=== PATIENT | female | born 1970 | race Caucasian/White ===

== ENCOUNTER 2023-09-23 14:04 | Outpatient (RCR) | payer OTHER, SELFPAY | END 2023-09-23 23:59 | disposition home or self-care (01) | LOC: RPT 14:04 | PROVIDERS: ATTENDING PHYSICIAN Orthopaedic Surgery Orthopaedic Surgery of the Spine; FAMILY PHYSICIAN Family Medicine | DX: M54.2 Cervicalgia (principal); M47.14 Other spondylosis with myelopathy, thoracic region; Z98.1 Arthrodesis status; M54.6 Pain in thoracic spine; Z73.6 Limitation of activities due to disability | CPT/HCPCS: 97010; 97014; 97110; 97112; 97140 ==

== ENCOUNTER 2023-10-19 09:53 | Outpatient (RCR) | payer OTHER, SELFPAY | END 2023-10-21 23:59 | disposition home or self-care (01) | LOC: RPT 09:53 | PROVIDERS: ATTENDING PHYSICIAN Orthopaedic Surgery Orthopaedic Surgery of the Spine; FAMILY PHYSICIAN Family Medicine | DX: M54.2 Cervicalgia (principal); M47.14 Other spondylosis with myelopathy, thoracic region; Z98.1 Arthrodesis status; M54.6 Pain in thoracic spine; Z73.6 Limitation of activities due to disability | CPT/HCPCS: 97010; 97014; 97110; 97112; 97140 ==

== ENCOUNTER 2023-11-23 08:10 | Outpatient (RCR) | payer OTHER, SELFPAY | END 2023-11-25 23:59 | disposition home or self-care (01) | LOC: RPT 08:10 | PROVIDERS: ATTENDING PHYSICIAN Orthopaedic Surgery Orthopaedic Surgery of the Spine; FAMILY PHYSICIAN Family Medicine | DX: Z47.89 Encounter for other orthopedic aftercare (principal); M54.2 Cervicalgia; M47.14 Other spondylosis with myelopathy, thoracic region; M54.6 Pain in thoracic spine; Z73.6 Limitation of activities due to disability; R26.2 Difficulty in walking, not elsewhere classified; Z98.1 Arthrodesis status | CPT/HCPCS: 97010; 97014; 97110; 97112; 97140 ==

== ENCOUNTER 2024-03-24 08:56 | Outpatient (RCR) | payer OTHER, SELFPAY | END 2024-03-24 23:59 | disposition home or self-care (01) | LOC: RPT 08:56 | PROVIDERS: ATTENDING PHYSICIAN Orthopaedic Surgery Orthopaedic Surgery of the Spine; FAMILY PHYSICIAN Family Medicine | DX: M96.3 Postlaminectomy kyphosis (principal); M54.51 Vertebrogenic low back pain; M54.2 Cervicalgia; M54.6 Pain in thoracic spine; Z73.6 Limitation of activities due to disability; R26.9 Unspecified abnormalities of gait and mobility | CPT/HCPCS: 97010; 97110; 97112; 97140; 97162; 97530 ==

== ENCOUNTER 2024-04-07 09:04 | Outpatient (RCR) | payer OTHER, SELFPAY | END 2024-04-07 23:59 | disposition home or self-care (01) | LOC: RPT 09:04 | PROVIDERS: ATTENDING PHYSICIAN Orthopaedic Surgery Orthopaedic Surgery of the Spine; FAMILY PHYSICIAN Family Medicine | DX: M96.3 Postlaminectomy kyphosis (principal); M54.51 Vertebrogenic low back pain; M54.2 Cervicalgia; M54.6 Pain in thoracic spine; Z73.6 Limitation of activities due to disability; R26.9 Unspecified abnormalities of gait and mobility | CPT/HCPCS: 97010; 97110; 97112; 97140; 97530 ==

== ENCOUNTER 2024-05-01 11:06 | Outpatient (RCR) | payer OTHER, SELFPAY | END 2024-05-01 23:59 | disposition home or self-care (01) | LOC: RPT 11:06 | PROVIDERS: ATTENDING PHYSICIAN Nurse Practitioner Adult Health; FAMILY PHYSICIAN Family Medicine | DX: M96.3 Postlaminectomy kyphosis (principal); M54.2 Cervicalgia; M54.51 Vertebrogenic low back pain; M54.6 Pain in thoracic spine; Z73.6 Limitation of activities due to disability | CPT/HCPCS: 97010; 97110; 97140 ==

== ENCOUNTER 2024-05-05 08:57 | Outpatient (RCR) | payer OTHER, SELFPAY | END 2024-05-05 23:59 | disposition home or self-care (01) | LOC: RPT 08:57 | PROVIDERS: ATTENDING PHYSICIAN Orthopaedic Surgery Orthopaedic Surgery of the Spine; FAMILY PHYSICIAN Family Medicine | DX: M96.3 Postlaminectomy kyphosis (principal); M54.51 Vertebrogenic low back pain; M54.2 Cervicalgia; M54.6 Pain in thoracic spine; Z73.6 Limitation of activities due to disability; R26.9 Unspecified abnormalities of gait and mobility | CPT/HCPCS: 97010; 97110; 97140; 97530 ==

== ENCOUNTER → 2024-05-26 07:56 | Outpatient (REF) | payer OTHER, SELFPAY | LOC: HWRAD 07:56 | PROVIDERS: ATTENDING PHYSICIAN Obstetrics & Gynecology Gynecology; FAMILY PHYSICIAN Family Medicine | DX: R10.2 Pelvic and perineal pain (principal) | CPT/HCPCS: 76830; 76856 ==

== ENCOUNTER 2024-06-04 18:22 | Emergency (ER) | payer OTHER, SELFPAY ==
[2024-06-04 18:31] VITALS: BP 173/106
[2024-06-04 20:50] VITALS: BP 159/102
[2024-06-04 21:35] VITALS: BP 134/89
--- NOTE | 2024-06-04 22:32 | ED.GENMED ---
History of Present Illness
General
Chief Complaint: Wound Check/Suture Removal
Source: patient
Exam Limitations: none
Time Seen by Provider: 06/04/24 21:52
History of Present Illness
History of Present Illness:
This is a 54 year old female that comes in with c/o neck discomfort. States that 3 days ago she felt like there was a big hard bone in her neck. State that there was pain when she touched this. States that there was a pop when she turned her head or
it was like she ripped a stitch that was inside. Then last night it feels like it is rolling back and forth and popping. States that this was done 5 months ago today at [place]. States that louisa has a headache that goes from her neck to the top of
her head. States that she did not call the surgeon. Denies any fever, chills, chest pain, SOB, abd pain, nausea, vomiting, diarrhea, dizziness, urinary burning.
Past History
Past History
ED Past Medical History: Asthma, Psychiatric (Anxiety, depression, bipolar) and Other (IBS, chronic neck pain, migraines, Spinal stenosis. PNA, UTI, )
ED Past Surgical History: Appendectomy, Gynecological (Total abd hysterectomy, Leep), Orthopedic (T10-12 fusion, microdiscectomy L3/L4, right and left wrist surgery, Right hand surgery, Cervical fusion), Urological (Bladder and ureteral stent) and
Other (Left Lumpectomy)
Social History
Tobacco: Non-smoker
Alcohol: None
Drug: None
Personal:
Living: with family
Employment: Employed (Self-employed)
Family History
Family History: Other (Noncontributory)
Review of Systems
Review of Systems
All Other Systems: ROS reviewed and negative except as documented in HPI and ROS
Constitutional: Reports no symptoms; Denies fever or chills
EENT: Reports no symptoms
Respiratory: Reports no symptoms; Denies cough or trouble breathing
Cardiac: Reports no symptoms; Denies chest pain
ABD/GI: Reports no symptoms; Denies abdominal pain, nausea, vomiting or diarrhea
: Reports no symptoms; Denies dysuria, frequency or urgency
Musculoskeletal: Reports neck pain (Feels something moving and popping)
Skin: Reports no symptoms
Neurological: Reports headache; Denies dizzy
Psychiatric: Reports no symptoms
Phy Exam
General Physical Exam
General Presentation: well appearing and no apparent distress
General age: appears stated age
General Skin: warm and dry
General Habitus: normal
General Hydration: dry mucous membranes
ENT Exam
ENT Exam: TM's normal, pharynx normal and neck supple
Eye Exam
Eye Exam: EOMI
Cardiovascular Exam
Cardiovascular Exam: regular rate/rhythm, no edema, no murmur and normal peripheral pulses
Pulmonary Exam
Pulmonary Exam: lungs clear, no respiratory distress, no rales, chest non tender, no crackles, no rhonchi, no wheezing and no cough
Gastrointestinal Exam
Gastrointestinal Exam: normal bowel sounds, non tender, soft, no organomegaly, no pulsatile mass and non distended
Musculoskeletal Exam
Musculoskeletal Exam: full ROM and other (Patient turns head and something pops and moves at the lower cervical spine on the right side, Small hard area with palpation)
Skin Exam
Skin Exam: normal color, warm/dry, no rash and no petechia
Psychiatric Exam
Psychiatric Exam: normal mood/affect
Course
Orders/Labs/Results
Orders:
Orders
06/04/24 22:31
CT Cervical Spine W/o Iv Contr Urgent
Comment:
Reason For Exam: Cervical fusion and feels something moving.
Vital Signs
Initial and Last Documented VS:
Initial Vital Signs
Temp Pulse Resp BP Pulse Ox
98.5 F 99 16 173/106 96
06/04/24 18:31 06/04/24 18:31 06/04/24 18:31 06/04/24 18:31 06/04/24 18:31
Last Documented Vital Signs
Temp Pulse Resp BP Pulse Ox
98.5 F 89 20 134/89 96
06/04/24 18:31 06/04/24 21:35 06/04/24 20:50 06/04/24 21:35 06/04/24 21:35
MDM/Problems Addressed
Differential Diagnosis Includes:
Cervical bolt loose,
MDM/Problems Addressed:
This is a 54 year old female that comes in with c/o something moving in her neck. State that she noticed a hard area 3 days ago and now this spot is popping and moving. States that she also has a headache which she believes is form this issue.
Will get CT of the cervical spine. Explained to patient that she needs to call the Surgeon and follow up with them Tomorrow.
Back into see patient. Explained that her CT is negative for any loose hardware and alignment is normal. Patient to follow up with the Surgeon that did the surgery and to call them tomorrow. Encouraged patient to stop toughing her neck. Will
discharge home.
Chronic conditions affecting care:
cervical fusion
Acute Exacerbation and/or Progression of Chronic Illness:
Cervical fusion.
*Radiology
Radiology exam reviewed: radiology read reviewed (CT cervical spine-No acute fracture or traumatic malalignment. No prevertebral soft tissue swelling. Spinal fusion hardware along the anterior and posterior margins of the cervical spine. No evidence
of hardware loosening. )
*EKG
Interpreted by ED Provider?: NA
Rate: EKG- N/A
*Caul Dresser Interpretation
Rate: Caul Dresser- N/A
*Critical Care Note
Total Time (30-74mins, 75-104mins- exclusive of procedures): Not Applicable
ED Attending Note
-
Portions of this chart may have been created with voice recognition software.� Occasional wrong word or��sound alike� substitutions may have occurred due to the inherent limitations of voice recognition software.
Discharge Plan
Departure
Patient Disposition: Home (Routine Discharge)
Date of Disposition: 06/04/24
Time of Disposition: 23:52
Patient with high blood pressure during this ER visit?: Yes
Condition: Good
Covid-19: Not Applicable
Discharge Problem:
Neck pain
Instructions: Neck Pain ED, BLOOD PRESSURE
Prescriptions:
No Action
ondansetron HCl 4 MG tablet
4 mg PO Q8HPRN PRN (Reason: n/v)
lorazepam 1 MG tablet
1 mg PO Q4HPRN PRN (Reason: anxiety)
polyethylene glycol 3350 17 GRAMS powder in packet
17 gm PO DAILY PRN (Reason: constipation)
clonazepam 0.25 MG tablet
0.25 mg PO AC
clonazepam 1 MG tablet
1 mg PO HS
sertraline 50 MG tablet
50 mg PO DAILY
lamotrigine 100 MG tablet
100 mg PO 2000
lamotrigine 100 MG tablet
100 mg PO 0800,1500
cholecalciferol (vitamin D3) 1,000 UNITS tablet
1,000 units PO DAILY
plecanatide [Trulance] 3 MG tablet
3 mg PO DAILY
fluticasone furoate [Arnuity Ellipta] 50 MCG blister with device
50 mcg inhalation R DAILY
Kristalose 20 gram packet
20 g PO BID PRN (Reason: constipation) Qty: 30 0RF
codeine-guaifenesin 10-100 mg/5 mL liquid
5 ml PO ONCE Qty: 100 0RF
gabapentin 300 mg capsule
300 mg PO TID Qty: 30 0RF
Referrals:
Yas East MD [Family Provider] -
Activity Restrictions/Additional Instructions:
As discussed, the CT shows that there does not appear to be any loose hardware. Please call the surgeon tomorrow and follow up with them in there office. Tylenol or Ibuprofen for headache pain. Please try and stop touching your neck. IF YOU HAVE ANY
OTHER CONCERNS PLEASE RETURN TO THE EMERGENCY ROOM.
Interventions
Interventions:
*Risk Screen - Suicide Last Done: 06/04/24 21:50
*Neglect/Abuse Screening Last Done: 06/04/24 21:50
ED- Fall Risk Assessment Last Done: 06/04/24 22:55
*ED COVID-19 Vaccine History Last Done: 06/04/24 22:55
ED-Skin Assessment Last Done: 06/04/24 21:35
Discharge Date and Time
Print Language: ICELANDIC
[2024-06-05 00:12] VITALS: BP 132/99
== END 2024-06-05 00:12 | disposition home or self-care (01) ==
LOC: EMR 18:22
PROVIDERS: EMERGENCY PHYSICIAN Emergency Medicine; FAMILY PHYSICIAN Family Medicine
DX: M54.2 Cervicalgia (principal); R03.0 Elevated blood-pressure reading, without diagnosis of hypertension
CPT/HCPCS: 99284; 72125

== ENCOUNTER → 2024-06-15 18:23 | Outpatient (REF) | payer OTHER, SELFPAY | LOC: MRI 18:23 | PROVIDERS: ATTENDING PHYSICIAN Psychiatry & Neurology Neurology; FAMILY PHYSICIAN Family Medicine | DX: M54.16 Radiculopathy, lumbar region (principal) | CPT/HCPCS: 72158; A9575 ==

== ENCOUNTER 2024-07-11 06:10 | Outpatient (RCR) | payer OTHER, SELFPAY | END 2024-07-12 15:57 | disposition home or self-care (01) | LOC: RPT 06:10 | PROVIDERS: ATTENDING PHYSICIAN Nurse Practitioner Adult Health; FAMILY PHYSICIAN Family Medicine | DX: N39.3 Stress incontinence (female) (male) (principal); N94.10 Unspecified dyspareunia; M62.89 Other specified disorders of muscle; Z73.6 Limitation of activities due to disability | CPT/HCPCS: 97163; 97530 ==

== ENCOUNTER → 2024-07-11 17:46 | Outpatient (REF) | payer OTHER, SELFPAY | LOC: PAVMRI 17:46 | PROVIDERS: ATTENDING PHYSICIAN Orthopaedic Surgery Orthopaedic Surgery of the Spine; FAMILY PHYSICIAN Family Medicine | DX: M47.14 Other spondylosis with myelopathy, thoracic region (principal); M54.12 Radiculopathy, cervical region; M96.0 Pseudarthrosis after fusion or arthrodesis | CPT/HCPCS: 72141; 72146 ==

== ENCOUNTER 2024-08-11 09:58 | Outpatient (RCR) | payer OTHER, SELFPAY | END 2024-08-11 23:59 | disposition home or self-care (01) | LOC: RPT 09:58 | PROVIDERS: ATTENDING PHYSICIAN Nurse Practitioner Adult Health; FAMILY PHYSICIAN Family Medicine | DX: M62.89 Other specified disorders of muscle (principal); N39.3 Stress incontinence (female) (male); N94.10 Unspecified dyspareunia; Z73.6 Limitation of activities due to disability | CPT/HCPCS: 97110; 97140; 97530 ==

== ENCOUNTER 2024-08-11 19:39 | Emergency (ER) | payer OTHER, SELFPAY ==
[2024-08-11 19:40] VITALS: BMI 38.8
[2024-08-11 19:41] VITALS: BP 141/110
[2024-08-11 19:48] VITALS: BP 148/80
[2024-08-11 20:00] VITALS: BP 129/89
--- NOTE | 2024-08-11 20:03 | ED.GENMED ---
History of Present Illness
General
Chief Complaint: Abdominal Symptoms
Time Seen by Provider: 08/11/24 20:03
History of Present Illness
History of Present Illness:
TIME OF INITIAL ENCOUNTER: 8 PM
HPI: Patient presents with rather significant abdominal pain over the last couple days. She describes this as an exacerbation of an IBS attack. She states she intermittently takes Bentyl for pain. She no longer takes Trulance. She says that she
stuck her 'finger up there' and felt something that was rockhard'.
EXAM:
GENERAL: Appears uncomfortable and crying
HEENT: Moist oral mucosa
CARDIOVASCULAR: No murmurs, normal heart rate, regular rhythm, No chest wall tenderness
PULMONARY: No respiratory distress, breath sounds are clear and equal
ABDOMEN: Soft with no peritoneal signs, no tenderness
NEUROLOGIC: Excellent strength all extremities, no coordination deficits
PSYCHIATRIC: Appropriate mental status, normal insight and judgement
EXTREMITIES: Nontender, no edema, moves all extremities equally
SKIN: No rash, no lesions
NUMBER AND COMPLEXITY OF PROBLEMS ADDRESSED AT THE ENCOUNTER
� Chronic conditions affecting care: IBS, spinal stenosis, constipation, bipolar disorder, anxiety/depression
� Acute Exacerbation and/or Progression of Chronic Illness: This is an acute problem
� Differential Diagnosis includes: Exacerbation of IBS, constipation, fecal impaction exacerbation of back pain/spinal stenosis
AMOUNT AND/OR COMPLEXITY OF DATA TO BE REVIEWED AND ANALYZED
� I performed an independent evaluation of and my interpretation is:
EKG:
CT:
X-rays:
Laboratory Studies: White count 11.2, hemoglobin normal, chemistries unremarkable
Other:
� Review of other/old records: I reviewed records, the patient had been getting physical therapy earlier this year related to disc disease.
� Clinical information was obtained by an independent historian: I spoke to family at bedside
� Prescriptions/Medications Considered but not given:
� Further testing considered but not performed: As symptoms are likely related to constipation recommend against imaging
RISK OF COMPLICATIONS AND/OR MORBIDITY OR MORTALITY OF PATIENT MANAGEMENT
� Social determinants of health affecting care: Lives at home
� Discussion with other providers:
� Escalation of care including admission/observation vs risk of discharge considered: Patient states that when she has been disimpacted in the past, she then develops diarrhea but overall feels improved.
ANY OTHER UPDATES:
8:30 PM: I performed digital rectal examination however she had an empty rectal vault. SAM White was in room as workforce development vice president. Will add soapsuds enema.
10 PM: I reassessed patient and overall she is feeling improved and did have a good bowel movement; she does still feel somewhat 'backed up'�she will resume MiraLAX
Past History
Past History
ED Past Medical History: Asthma, Psychiatric (Anxiety, depression, bipolar) and Other (IBS, chronic neck pain, migraines, Spinal stenosis. PNA, UTI, )
ED Past Surgical History: Appendectomy, Gynecological (Total abd hysterectomy, Leep), Orthopedic (T10-12 fusion, microdiscectomy L3/L4, right and left wrist surgery, Right hand surgery, Cervical fusion), Urological (Bladder and ureteral stent) and
Other (Left Lumpectomy)
Social History
Tobacco: Non-smoker
Alcohol: None
Drug: None
Personal:
Living: with family
Employment: Employed (Self-employed)
Family History
Family History: Other (Noncontributory)
Phy Exam
Physical Exam
Physical Exam:
See HPI
Course
Orders/Labs/Results
Orders:
Orders
08/11/24 19:52
Basic Metabolic Panel Urgent
Complete Blood Count/With Diff Urgent
Lipase Urgent
08/11/24 20:08
Ketorolac [Toradol] 15 mg IV NOW STA
Ondansetron Injectable [Zofran] 4 mg IV NOW STA
08/11/24 20:10
0.9% Sodium Chloride 1000 ml [Nss] 1,000 ml IV BOLUS
08/11/24 20:49
Enema- Treatment ONCE
Type: Soap Suds
Abnormal Lab Results
08/11/24
19:52
WBC 11.2 H 10^3/uL
(4.8-10.8)
MCH 26.5 L pg
(27.0-31.0)
MCHC 32.0 L g/dL
(33.0-37.0)
RDW 15.7 H %
(11.5-14.5)
Absolute Lymphs (auto) 4.6 H 10^3/uL
(1.2-3.4)
Absolute Monos (auto) 0.7 H 10^3/uL
(0.1-0.6)
Glucose 117 H mg/dl
(70-99)
08/11/24 19:52
08/11/24 19:52
Vital Signs
Initial and Last Documented VS:
Initial Vital Signs
Pulse Resp BP Pulse Ox
115 15 141/110 99
08/11/24 19:41 08/11/24 19:41 08/11/24 19:41 08/11/24 19:41
Last Documented Vital Signs
Temp Pulse Resp BP Pulse Ox
98.2 F 74 16 123/78 99
08/11/24 21:26 08/11/24 21:26 08/11/24 21:26 08/11/24 21:26 08/11/24 21:26
*Critical Care Note
Total Time (30-74mins, 75-104mins- exclusive of procedures): Not Applicable
ED Attending Note
-
Portions of this chart may have been created with voice recognition software.� Occasional wrong word or��sound alike� substitutions may have occurred due to the inherent limitations of voice recognition software.
Discharge Plan
Departure
Patient Disposition: Home (Routine Discharge)
Date of Disposition: 08/11/24
Time of Disposition: 21:58
Patient with high blood pressure during this ER visit?: Yes
Discharge Problem:
Constipation
Instructions: Constipation, Adult (DC)
Prescriptions:
No Action
ondansetron HCl 4 MG tablet
4 mg PO Q8HPRN PRN (Reason: n/v)
lorazepam 1 MG tablet
1 mg PO Q4HPRN PRN (Reason: anxiety)
polyethylene glycol 3350 17 GRAMS powder in packet
17 gm PO DAILY PRN (Reason: constipation)
clonazepam 0.25 MG tablet
0.25 mg PO AC
clonazepam 1 MG tablet
1 mg PO HS
sertraline 50 MG tablet
50 mg PO DAILY
lamotrigine 100 MG tablet
100 mg PO 2000
lamotrigine 100 MG tablet
100 mg PO 0800,1500
cholecalciferol (vitamin D3) 1,000 UNITS tablet
1,000 units PO DAILY
plecanatide [Trulance] 3 MG tablet
3 mg PO DAILY
fluticasone furoate [Arnuity Ellipta] 50 MCG blister with device
50 mcg inhalation R DAILY
Kristalose 20 gram packet
20 g PO BID PRN (Reason: constipation) Qty: 30 0RF
codeine-guaifenesin 10-100 mg/5 mL liquid
5 ml PO ONCE Qty: 100 0RF
gabapentin 300 mg capsule
300 mg PO TID Qty: 30 0RF
Referrals:
Yas East MD [Family Provider] -
Activity Restrictions/Additional Instructions:
We did give you a soapsuds enema. White blood cell count was minimally elevated, otherwise blood work was normal. Return here if worse or other concerns. I recommend continuing MiraLAX.
Interventions
Interventions:
*Risk Screen - Suicide Last Done: 08/11/24 19:41
*General Assessment Last Done: 08/11/24 19:41
*Neglect/Abuse Screening Last Done: 08/11/24 19:41
ED- Fall Risk Assessment Last Done: 08/11/24 19:50
*ED COVID-19 Vaccine History Last Done: 08/11/24 19:41
*Nursing Disposition Last Done: 08/11/24 21:59
LB-Joxebj-Ehptzjqxhj Assessment Last Done: 08/11/24 19:50
Discharge Date and Time
Print Language: ROMANIAN
[2024-08-11 20:06] LABS: % Basophils 0.6 % (0-2); % Eosinophils 0.8 % (0-6); % Immature Granulocytes 0.3 % (0-0.5); % Lymphocytes 40.8 % (20.5-51.1); % Monocytes 6.3 % (1.7-9.3); % Neutrophils 51.2 % (42.2-75.2); Absolute Basophils 0.1 10^3/uL (0-0.2); Absolute Eosinophils 0.1 10^3/uL (0-0.7); Absolute Lymphocytes 4.6 10^3/uL (1.2-3.4); Absolute Monocytes 0.7 10^3/uL (0.1-0.6); Absolute Neutrophils 5.7 10^3/uL (1.4-6.5); Hematocrit 41.3 % (37.0-47.0); Hemoglobin 13.2 g/dL (12.0-16.0); Mean Corpuscular Hgb 26.5 pg (27.0-31.0); Mean Corpuscular Volume 82.8 fL (81.0-99.0); Nucleated Red Blood Cells % 0 %; Platelet Count 384 10^3/uL (130-400); Red Blood Cell Count 4.99 10^6/uL (4.20-5.40); Red Cell Dist. Width 15.7 % (11.5-14.5); White Blood Cell Count 11.2 10^3/uL (4.8-10.8)
[2024-08-11] MEDS: TORADOL 15 MG IV (20:10)
[2024-08-11] MEDS: ZOFRAN 4 MG IV (20:10)
[2024-08-11] MEDS: NSS 1000 IV (20:14)
[2024-08-11 20:25] LABS: Blood Urea Nitrogen 12 mg/dl (7-17); Calcium 9.8 mg/dl (8.4-10.2); Carbon Dioxide 24 mmol/L (22-30); Chloride 102 mmol/L (98-107); Estimated Creatinine Clearance 78 ml/min; Glucose 117 mg/dl (70-99); Lipase 52 U/L (23-300); Sodium 139 mmol/L (135-145); eGFR > 60.00
[2024-08-11 21:26] VITALS: BP 123/78
== END 2024-08-11 22:05 | disposition home or self-care (01) ==
LOC: EMR 19:39
PROVIDERS: Emergency Medicine; EMERGENCY PHYSICIAN Emergency Medicine; FAMILY PHYSICIAN Family Medicine
DX: K59.00 Constipation, unspecified (principal); R03.0 Elevated blood-pressure reading, without diagnosis of hypertension
CPT/HCPCS: 99284; 96374; 96375; 96361; 80048; 83690; 85025

== ENCOUNTER 2024-09-01 09:49 | Outpatient (RCR) | payer OTHER, SELFPAY | END 2024-09-01 23:59 | disposition home or self-care (01) | LOC: RPT 09:49 | PROVIDERS: ATTENDING PHYSICIAN Nurse Practitioner Adult Health; FAMILY PHYSICIAN Family Medicine | DX: M62.89 Other specified disorders of muscle (principal); N39.3 Stress incontinence (female) (male); N94.10 Unspecified dyspareunia; Z73.6 Limitation of activities due to disability; R26.89 Other abnormalities of gait and mobility; K58.9 Irritable bowel syndrome, unspecified | CPT/HCPCS: 97112; 97140 ==

== ENCOUNTER → 2024-09-05 14:38 | Outpatient (REF) | payer OTHER, SELFPAY | LOC: HWWDC 14:38 | PROVIDERS: ATTENDING PHYSICIAN Obstetrics & Gynecology Gynecology; FAMILY PHYSICIAN Family Medicine; REFERRING PHYSICIAN Surgery | DX: Z12.31 Encounter for screening mammogram for malignant neoplasm of breast (principal) | CPT/HCPCS: 77063; 77067 ==

== ENCOUNTER → 2024-09-11 10:45 | Outpatient (REF) | payer OTHER, SELFPAY | LOC: RAD 10:45 | PROVIDERS: ATTENDING PHYSICIAN Psychiatry & Neurology Neurology; FAMILY PHYSICIAN Nurse Practitioner Acute Care | DX: M25.552 Pain in left hip (principal); M25.551 Pain in right hip | CPT/HCPCS: 73522 ==

== ENCOUNTER 2024-10-20 09:24 | Emergency (ER) | payer OTHER, SELFPAY ==
[2024-10-20 09:28] VITALS: BP 128/90
[2024-10-20 09:44] VITALS: BMI 35.0
[2024-10-20 09:49] VITALS: BP 117/78
--- NOTE | 2024-10-20 10:19 | EDRN ---
Brina BURLESON in room w/ pt.
--- NOTE | 2024-10-20 10:24 | ED.GENMED ---
History of Present Illness
General
Chief Complaint: Fall
Source: patient
Exam Limitations: none
Time Seen by Provider: 10/20/24 10:04
History of Present Illness
History of Present Illness:
54yoF with a history of spinal stenosis and multiple prior spinal fusions presenting for evaluation after a fall about 1.5 hours ago. Patient was sitting in a rocking chair and was trying to reposition herself. She fell backwards with the chair
striking her back and head. No LOC. Patient was able to ambulate after the fall. She reports neck and midback pain as well as rib discomfort. She also has a mild headache although she states she is mostly concerned about her back and wants to make
sure none of the screws from her prior surgery are loose. She denies any dizziness, visual changes, vomiting, shortness of breath. No pain, paresthesias, or weakness in the extremities. She had a C3-T1 anterior and posterior fusion at [place] 8
months ago. She also has a T8-T12 fusion.
Past History
Past History
ED Past Medical History: Asthma, Psychiatric (Anxiety, depression, bipolar) and Other (IBS, chronic neck pain, migraines, Spinal stenosis. PNA, UTI, )
ED Past Surgical History: Appendectomy, Gynecological (Total abd hysterectomy, Leep), Orthopedic (T10-12 fusion, microdiscectomy L3/L4, right and left wrist surgery, Right hand surgery, Cervical fusion), Urological (Bladder and ureteral stent) and
Other (Left Lumpectomy)
Social History
Tobacco: Non-smoker
Alcohol: None
Drug: None
Personal:
Living: with family
Employment: Employed (Self-employed)
Family History
Family History: Other (Noncontributory)
Phy Exam
General Physical Exam
General Presentation: well appearing and no apparent distress
General age: appears stated age
General Skin: warm and dry
General Habitus: normal
General Mental: alert
ENT Exam
ENT Exam: normocephalic (No external signs of head trauma)
Additional ENT: +Cervical spine tenderness. Prior surgical scar noted. No step-offs.
Eye Exam
Eye Exam: PERRL
Pulmonary Exam
Pulmonary Exam: lungs clear, no respiratory distress, no rales, no crackles, no rhonchi and other (+Bilateral anterior rib tenderness. No skin changes or crepitus. Breath sounds equal bilaterally. )
Gastrointestinal Exam
Gastrointestinal Exam: non tender, soft and non distended
Neurological Exam
Neurological Exam: alert
Sulema Coma Scale
Eye Opening: Spontaneous
Verbal Response: Oriented
Motor Response: Obeys Commands
GCS Total Score: 15
Musculoskeletal Exam
Musculoskeletal Exam: other (+Thoracic spine tenderness without step-offs or skin changes. )
Skin Exam
Skin Exam: normal color and warm/dry
Psychiatric Exam
Psychiatric Exam: normal mood/affect
Course
Orders/Labs/Results
Orders:
Orders
10/20/24 10:[address]
CT Cervical Spine W/o Iv Contr Urgent
Comment:
Reason For Exam: Neck pain, fall, prior fusion
CT Thoracic Spine W/o Iv Contr Urgent
Comment:
Reason For Exam: Mid back pain, fall, prior fusion
Ketorolac [Toradol] 30 mg IM NOW STA
10/20/24 10:23
CR Chest - 2 Views Urgent
Comment:
Reason For Exam: bilateral rib pain
Vital Signs
Initial and Last Documented VS:
Initial Vital Signs
Pulse Resp BP Pulse Ox
87 18 128/90 97
10/20/24 09:28 10/20/24 09:28 10/20/24 09:28 10/20/24 09:28
Last Documented Vital Signs
Pulse Resp BP Pulse Ox
74 16 117/78 96
10/20/24 09:49 10/20/24 09:49 10/20/24 09:49 10/20/24 09:49
MDM/Problems Addressed
Differential Diagnosis Includes:
54yoF here after a mechanical fall while in a chair this morning. C/o neck and back pain. Hx of multiple prior spinal fusions. Also struck head but denies any LOC. Has a very mild headache currently. No dizziness or vomiting. No external signs of
head trauma on exam. There is reproducible C and T spine tenderness without step-offs or skin changes. Differential diagnosis includes but is not limited to: fracture, contusion, sprain
Initial ED plan: Check CXR and CT cervical/thoracic spine. Will defer head imaging at this time. IM Toradol for pain.
*Critical Care Note
Total Time (30-74mins, 75-104mins- exclusive of procedures): Not Applicable
Update Note
Update Note:
Imaging negative for traumatic injuries. No fractures and hardware is intact. Patient is stable for discharge. Supportive care discussed. She was advised to follow-up with her PCP and pain management doctor. ED return precautions discussed.
Patient in agreement with plan and was discharged in stable condition.
ED Attending Note
-
Portions of this chart may have been created with voice recognition software.� Occasional wrong word or��sound alike� substitutions may have occurred due to the inherent limitations of voice recognition software.
Discharge Plan
Departure
Patient Disposition: Home (Routine Discharge)
Date of Disposition: 10/20/24
Time of Disposition: 12:15
Patient with high blood pressure during this ER visit?: No
Discharge Problem:
Accidental fall from chair, Acute neck pain
Instructions: Muscle, joint, and bone pain - Discharge instructions
Prescriptions:
No Action
ondansetron HCl 4 MG tablet
4 mg PO Q8HPRN PRN (Reason: n/v)
lorazepam 1 MG tablet
1 mg PO Q4HPRN PRN (Reason: anxiety)
polyethylene glycol 3350 17 GRAMS powder in packet
17 gm PO DAILY PRN (Reason: constipation)
clonazepam 0.25 MG tablet
0.25 mg PO AC
clonazepam 1 MG tablet
1 mg PO HS
sertraline 50 MG tablet
50 mg PO DAILY
lamotrigine 100 MG tablet
100 mg PO 2000
lamotrigine 100 MG tablet
100 mg PO 0800,1500
cholecalciferol (vitamin D3) 1,000 UNITS tablet
1,000 units PO DAILY
plecanatide [Trulance] 3 MG tablet
3 mg PO DAILY
fluticasone furoate [Arnuity Ellipta] 50 MCG blister with device
50 mcg inhalation R DAILY
Kristalose 20 gram packet
20 g PO BID PRN (Reason: constipation) Qty: 30 0RF
codeine-guaifenesin 10-100 mg/5 mL liquid
5 ml PO ONCE Qty: 100 0RF
gabapentin 300 mg capsule
300 mg PO TID Qty: 30 0RF
Referrals:
Yas East MD [Family Provider] -
Activity Restrictions/Additional Instructions:
Take Tylenol 650mg and ibuprofen 600mg every 6 hours as needed for pain. You may continue lidocaine patches as well.
Please follow-up with your family doctor and pain management doctor. Return to the ER with any new or worsening symptoms.
Interventions
Interventions:
*Risk Screen - Suicide Last Done: 10/20/24 09:28
*General Assessment Last Done: 10/20/24 09:28
*Neglect/Abuse Screening Last Done: 10/20/24 09:28
ED- Fall Risk Assessment Last Done: 10/20/24 09:44
*ED COVID-19 Vaccine History Last Done: 10/20/24 09:28
*Nursing Disposition Last Done: 10/20/24 12:52
ED-Musculoskeletal Assessment Last Done: 10/20/24 09:44
ED- Neurological Assessment Last Done: 10/20/24 09:44
ED-Skin Assessment Last Done: 10/20/24 09:44
Discharge Date and Time
Discharge Date/Time: 10/20/24 12:53
Print Language: INDONESIAN
[2024-10-20] MEDS: TORADOL 30 MG IM (10:40)
== END 2024-10-20 12:53 | disposition home or self-care (01) ==
LOC: EMR 09:24
PROVIDERS: EMERGENCY PHYSICIAN Emergency Medicine; FAMILY PHYSICIAN Family Medicine
DX: M54.2 Cervicalgia (principal); W07.XXXA Fall from chair, initial encounter
CPT/HCPCS: 99284; 96374; 71046; 72125; 72128

== ENCOUNTER 2024-10-26 08:45 | Emergency (ER) | payer OTHER, SELFPAY ==
[2024-10-26] VITALS (8 sets, daily range): BP systolic 123–178; BP diastolic 83–106; BMI 36.3
[2024-10-26 09:14] LABS: % Basophils 0.7 % (0-2); % Eosinophils 1.1 % (0-6); % Immature Granulocytes 0.3 % (0-0.5); % Lymphocytes 40.7 % (20.5-51.1); % Monocytes 6.9 % (1.7-9.3); % Neutrophils 50.3 % (42.2-75.2); Absolute Basophils 0.1 10^3/uL (0-0.2); Absolute Eosinophils 0.1 10^3/uL (0-0.7); Absolute Lymphocytes 2.8 10^3/uL (1.2-3.4); Absolute Monocytes 0.5 10^3/uL (0.1-0.6); Absolute Neutrophils 3.5 10^3/uL (1.4-6.5); Hematocrit 42.3 % (37.0-47.0); Hemoglobin 13.8 g/dL (12.0-16.0); Mean Corp Hgb Conc. 32.6 g/dL (33.0-37.0); Mean Corpuscular Volume 82.8 fL (81.0-99.0); Mean Platelet Volume 8.7 fL (7.4-10.4); Nucleated Red Blood Cells % 0 %; Platelet Count 380 10^3/uL (130-400); Red Blood Cell Count 5.11 10^6/uL (4.20-5.40); Red Cell Dist. Width 14.9 % (11.5-14.5)
[2024-10-26 09:40] LABS: ALT (SGPT) 17 U/L (0-35); AST (SGOT) 20 U/L (14-36); Albumin 4.9 g/dl (3.5-5.0); Alkaline Phosphatase 78 U/L (38-126); Blood Urea Nitrogen 11 mg/dl (7-17); Calcium 9.3 mg/dl (8.4-10.2); Carbon Dioxide 27 mmol/L (22-30); Chloride 103 mmol/L (98-107); Glucose 108 mg/dl (70-99); Potassium 4.1 mmol/L (3.5-5.1); Sodium 141 mmol/L (135-145); Total Bilirubin 0.5 mg/dl (0.2-1.3); Total Protein 7.2 g/dl (6.3-8.2); eGFR > 60.00
--- NOTE | 2024-10-26 10:34 | ED.GENMED ---
History of Present Illness
General
Chief Complaint: Visual Problem
Source: patient
Exam Limitations: none
Time Seen by Provider: 10/26/24 10:00
History of Present Illness
History of Present Illness:
54-year-old female with history of prediabetes and borderline hyperlipidemia and significant family history of cardiovascular disease presents in referral from eye doctor for evaluation of potential TIA. 2 nights ago she had complete visual loss
out of her left eye that lasted about a minute. This was painless. There is no associated paresthesias numbness or tingling to the arms or legs during that time however she has had intermittent numbness to her feet bilaterally since then. She
denies any current numbness or paresthesias to her feet. No associated chest pain. No fever. No shortness of breath abdominal pain nausea or vomiting. She was seen by clerical proofreader today eyes checked out well and he will advising her to come
here for stroke work
Past History
Past History
ED Past Medical History: Asthma, Psychiatric (Anxiety, depression, bipolar) and Other (IBS, chronic neck pain, migraines, Spinal stenosis. PNA, UTI, )
ED Past Surgical History: Appendectomy, Gynecological (Total abd hysterectomy, Leep), Orthopedic (T10-12 fusion, microdiscectomy L3/L4, right and left wrist surgery, Right hand surgery, Cervical fusion), Urological (Bladder and ureteral stent) and
Other (Left Lumpectomy)
Social History
Tobacco: Non-smoker
Alcohol: None
Drug: None
Personal:
Living: with family
Employment: Employed (Self-employed)
Family History
Family History: Other (Noncontributory)
Phy Exam
Physical Exam
Physical Exam:
General: Well-appearing female no acute respiratory distress
HEENT: Normocephalic atraumatic pupils are dilated from recent eye doctor visit. Extract motions are
Heart: Regular rate and rhythm
Lungs: Clear no wheeze
Neurologic exam: No facial asymmetry dysarthria or aphasia. No drift. Good strength and sensation to the upper and lower extremities visual espinosa intact
Skin: Warm no rash
Course
Orders/Labs/Results
Orders:
Orders
10/26/24
CT Head & Neck Angio W/wo IV Urgent
Comment:
Reason For Exam: left eye visual loss
10/26/24 09:08
Complete Blood Count/With Diff Urgent
Comprehensive Metabolic Panel Urgent
10/26/24 10:40
Electrocardiogram (*1) Urgent
Reason for Study: TIA/Stroke
EKG- Treatment ONCE
10/26/24 12:19
0.9% Sodium Chloride 1000 ml [Nss] 1,000 ml IV BOLUS
Ketorolac [Toradol] 15 mg IV NOW STA
10/26/24 14:44
CRP [C-Reactive Protein] Routine
ESR [Erythrocyte Sed Rate] Routine
10/26/24 15:27
MR Brain Without Contrast Routine
Comment:
Reason For Exam: TIA
OK for patient to be off Cardiac Monitoring for MRI: No
Recent pill cam endoscopy?: No
10/26/24 15:41
Lorazepam [Ativan] 1 mg IV NOW STA
10/26/24 15:43
Lorazepam [Ativan] 2 mg .ROUTE .STK-MED ONE
Abnormal Lab Results
10/26/24
09:08
MCHC 32.6 L g/dL
(33.0-37.0)
RDW 14.9 H %
(11.5-14.5)
Glucose 108 H mg/dl
(70-99)
10/26/24 09:08
10/26/24 09:08
Vital Signs
Initial and Last Documented VS:
Initial Vital Signs
Temp Pulse Resp BP Pulse Ox
97.5 F 95 16 178/106 99
10/26/24 09:01 10/26/24 09:01 10/26/24 09:01 10/26/24 09:01 10/26/24 09:01
Last Documented Vital Signs
Temp Pulse Resp BP Pulse Ox
97.5 F 89 19 130/92 97
10/26/24 09:01 10/26/24 16:49 10/26/24 16:49 10/26/24 16:49 10/26/24 15:30
MDM/Problems Addressed
Differential Diagnosis Includes:
Transient now resolved visual loss out of left eye happened 2 days ago. Lasted about 1 minute. Differential could include TIA versus CVA versus retinal problem however patient seen by ophthalmology today and her eyes were normal. She does have
some risk factors including family history and borderline hyperlipidemia and diabetes.
Start workup with CT head and CT angio of head and neck. No neurologic deficit currently. Will reach out to neurology. Basic labs pending
*Critical Care Note
Total Time (30-74mins, 75-104mins- exclusive of procedures): Not Applicable
Update Note
Update Note:
Discussed case with neurology who saw the patient. CTA of the head and neck were negative for obvious acute findings. Neurology saw patient and recommended MRI. An MRI of the brain was ordered which shows
IMPRESSION:
No acute intracranial abnormality noted.
Mild scattered T2/FLAIR hyperintensities within the periventricular and subcortical white matter of the bilateral cerebral hemispheres which is nonspecific however likely sequelae of mild small vessel ischemic disease. Patient will start a baby
aspirin and follow-up with family doctor for outpatient Holter monitor
Patient will be discharged home on a baby aspirin daily and follow-up with outpatient doctor for Holter monitor
ED Attending Note
-
Portions of this chart may have been created with voice recognition software.� Occasional wrong word or��sound alike� substitutions may have occurred due to the inherent limitations of voice recognition software.
Discharge Plan
Departure
Patient Disposition: Home (Routine Discharge)
Date of Disposition: 10/26/24
Time of Disposition: 17:10
Patient with high blood pressure during this ER visit?: No
Discharge Problem:
Visual loss
Instructions: Transient ischemic attack
Prescriptions:
No Action
ondansetron HCl 4 MG tablet
4 mg PO Q8HPRN PRN (Reason: n/v)
lorazepam 1 MG tablet
1 mg PO Q4HPRN PRN (Reason: anxiety)
polyethylene glycol 3350 17 GRAMS powder in packet
17 gm PO DAILY PRN (Reason: constipation)
clonazepam 0.25 MG tablet
0.25 mg PO AC
clonazepam 1 MG tablet
1 mg PO HS
sertraline 50 MG tablet
50 mg PO DAILY
lamotrigine 100 MG tablet
100 mg PO 2000
lamotrigine 100 MG tablet
100 mg PO 0800,1500
cholecalciferol (vitamin D3) 1,000 UNITS tablet
1,000 units PO DAILY
plecanatide [Trulance] 3 MG tablet
3 mg PO DAILY
fluticasone furoate [Arnuity Ellipta] 50 MCG blister with device
50 mcg inhalation R DAILY
Kristalose 20 gram packet
20 g PO BID PRN (Reason: constipation) Qty: 30 0RF
codeine-guaifenesin 10-100 mg/5 mL liquid
5 ml PO ONCE Qty: 100 0RF
gabapentin 300 mg capsule
300 mg PO TID Qty: 30 0RF
Referrals:
Yas East MD [Family Provider] -
Activity Restrictions/Additional Instructions:
Please start 81 mg of aspirin daily and follow-up with your doctor for Holter monitoring. Return if needed otherwise
Interventions
Interventions:
*Risk Screen - Suicide Last Done: 10/26/24 09:04
*General Assessment Last Done: 10/26/24 11:00
*Neglect/Abuse Screening Last Done: 10/26/24 09:04
*ED COVID-19 Vaccine History Last Done: 10/26/24 11:00
ED- Neurological Assessment Last Done: 10/26/24 09:56
ED-EENT Assessment Last Done: 10/26/24 09:57
ED Swallowing Screen Last Done: 10/26/24 11:00
Discharge Date and Time
Print Language: HEBREW
[2024-10-26] MEDS: TORADOL 15 MG IV (12:24)
[2024-10-26] MEDS: NSS 1000 IV (12:24)
--- NOTE | 2024-10-26 14:24 | CON.NEURO ---
Consultation
Order
Date of Consultation: 10/26/24
Requesting Provider: Gideon Yates PA-C
Reason for Consult: TIA
Neurology Consultation Note.
HPI: Ms. Mcdaniel, presents with a history of transient monocular painless blindness in the left eye. The episode occurred on Wednesday night, with sudden awakening from the sleep (' as panic attack') and complete blindness in the left eye lasting
approximately 30-45 seconds, possibly up to one minute. The room was dark but there was a reportedly light in the hallway. Vision gradually returned with no residual deficits. No reports of headaches, head trauma, eye trauma, new motor or sensory
deficits the patient consulted an managed care nurse who, after a complete exam including fundoscopy, suggested a possible transient ischemic attack. No reports of familial thrombophilia, history of PE or DVT
Ms. Mcdaniel reports a history of anxiety, for which she has been prescribed Klonopin since age 25.
ER VS: 178/106, 85, afebrile
PDMP:Lorazepam 1 Mg 30 tablets filled in on 10/23/2024, 08/26/2024, clonazepam 1 mg 90 tablets filled in on 06/21/2024.
Labs: Glucose�108, normal WBCs, sodium, Cr
Brain MRI without ilan�no acute abnormalities.
CTA head/neck�no hemodynamically significant stenosis
PMH: History of spinal stenosis, Vitamin D deficiency, BMI 36.3, IBS, ILAN, bipolar DO
PSH: C3 C6, T11/T12 laminectomy, right hemilaminectomy at L3/L4
SH: , non-smoker, boutique file clerk; has 3 children
FH: colon cancer
All: Vicodin
ROS: Constitutional: Negative. Negative for chills, fever and unexpected weight change.
HENT: Negative for ear pain, hearing loss, tinnitus and trouble swallowing.
Eyes: Positive for transient visual changes
Respiratory: Negative for cough, choking and shortness of breath.
Cardiovascular: Negative for chest pain, palpitations and leg swelling.
Gastrointestinal: Negative for abdominal pain and vomiting.
Endocrine: Negative. Negative for cold intolerance.
Genitourinary: Negative for dysuria, flank pain and urgency.
Musculoskeletal: Negative for back pain, gait problem, neck pain and neck stiffness.
Skin: Negative for rash.
Allergic/Immunologic: Negative. Negative for immunocompromised state.
Neurological: Positive for chronic imbalance and prestigious in the legs
Psychiatric/Behavioral: Negative for behavioral problems, confusion and hallucinations.
General: Well developed. In no acute distress.
Cardio: Regular rate and rhythm without murmur. Extremities are without cyanosis or edema.
Neuro:
Mental Status: Alert, oriented to person, place, and date. Normal attention and recall. Good fund of knowledge. Follows complex requests across the midline. Comprehension, naming, and repetition intact. Immediate and delayed recall 3/3.
Cranial Nerves: Pupils are equally round and reactive to light. EOMs full. Visual espinosa full to confrontation. No ptosis. No nystagmus. V1-V3 intact to light touch and pinprick bilaterally, symmetric. Face symmetric. Normal hearing AU. The
palate elevated well. SCMs and traps 5/5. Tongue midline. No dysarthria.
Motor: Normal bulk and tone. No pronator or arm drift. Strength 5/5 throughout. No clonus.
Reflexes: 3+ throughout the upper extremities and 3+ knees. 2/2 in AJs. Plantar responses flexor bilaterally.
Sensory: Normal vibration at the toes
Coordination: No dysmetria or tremor.
Gait: deferred
Assessment and Plan:
I. Transient monocular visual loss. Differential diagnosis includes TIA vs transient retinal vascular spasm vs giant cell arteritis, less likely postictal migraine
II. Chronic left cervical myelopathy
III. ILAN
-Telemetry monitoring
-Please obtain CRP, ESR
-Aspirin 81 mg
-Cardiology consult�TTE/Holter monitor
-Outpatient ophthalmology, neurology and cardiology follow-up
I personally reviewed all radiology and labs along with past medical records pertinent to current medical problems. Total time spent in patient care is 60 minutes.
Thank you for allowing us to participate in the care of this patient. Please do not hesitate to contact us with any questions or concerns.
Subjective/Objective
Subjective Data
Date of Service: October 26, 2024
Objective Data
Vital Signs
Temp Pulse Resp BP Pulse Ox
36.4 C 88 18 128/87 94
10/26/24 09:01 10/26/24 13:15 10/26/24 13:15 10/26/24 13:00 10/26/24 13:15
Lab Results
10/26/24 09:08
10/26/24 09:08
Sodium 141 mmol/L (135-145) 10/26/24 09:08
Potassium 4.1 mmol/L (3.5-5.1) 10/26/24 09:08
BUN 11 mg/dl (7-17) 10/26/24 09:08
Glucose 108 mg/dl (70-99) H 10/26/24 09:08
Calcium 9.3 mg/dl (8.4-10.2) 10/26/24 09:08
Patient Allergies
hydrocodone bitartrate [From Vicodin] Adverse Reaction (Verified 10/20/24 09:31)
Nausea / Vomiting
Medications
-
Home Medications
�Medication �Instructions �Recorded
lorazepam 1 mg tablet 1 mg PO Q4HPRN PRN anxiety 06/26/15
ondansetron HCl 4 mg tablet 4 mg PO Q8HPRN PRN n/v 06/26/15
polyethylene glycol 3350 17 gram 17 gm PO DAILY PRN constipation 02/19/21
oral powder packet
cholecalciferol (vitamin D3) 25 1,000 units PO DAILY 05/16/21
mcg (1,000 unit) tablet
clonazepam 0.5 mg tablet 0.25 mg PO AC 05/16/21
clonazepam 1 mg tablet 1 mg PO HS 05/16/21
fluticasone furoate 50 50 mcg inhalation R DAILY 05/16/21
mcg/actuation blister powder for
inhalation (Arnuity Ellipta)
lamotrigine 100 mg tablet 100 mg PO 0800,1500 05/16/21
lamotrigine 100 mg tablet 100 mg PO 2000 05/16/21
plecanatide 3 mg tablet (Trulance) 3 mg PO DAILY 05/16/21
sertraline 50 mg tablet 50 mg PO DAILY 05/16/21
lactulose 20 gram oral packet 20 g PO BID PRN constipation #30 ea 08/17/22
(Kristalose)
codeine 10 mg-guaifenesin 100 mg/5 5 ml PO ONCE #100 mL 09/16/22
mL oral liquid
gabapentin 300 mg capsule 300 mg PO TID #30 caps 03/27/23
Vital Signs and Labs
-
Vital Signs and Labs:
Vital Signs
Temp Pulse Resp BP Pulse Ox
36.4 C 88 18 128/87 94
10/26/24 09:01 10/26/24 13:15 10/26/24 13:15 10/26/24 13:00 10/26/24 13:15
Lab Results
10/26/24 09:08
10/26/24 09:08
Sodium 141 mmol/L (135-145) 10/26/24 09:08
Potassium 4.1 mmol/L (3.5-5.1) 10/26/24 09:08
BUN 11 mg/dl (7-17) 10/26/24 09:08
Glucose 108 mg/dl (70-99) H 10/26/24 09:08
Calcium 9.3 mg/dl (8.4-10.2) 10/26/24 09:08
Home Medications
-
Home Medications
lorazepam 1 mg tablet 1 mg PO Q4HPRN PRN anxiety 06/26/15
ondansetron HCl 4 mg tablet 4 mg PO Q8HPRN PRN n/v 06/26/15
polyethylene glycol 3350 17 gram oral powder packet 17 gm PO DAILY PRN constipation 02/19/21
cholecalciferol (vitamin D3) 25 mcg (1,000 unit) tablet 1,000 units PO DAILY 05/16/21
clonazepam 0.5 mg tablet 0.25 mg PO AC 05/16/21
clonazepam 1 mg tablet 1 mg PO HS 05/16/21
fluticasone furoate 50 mcg/actuation blister powder for inhalation (Arnuity Ellipta) 50 mcg inhalation R DAILY 05/16/21
lamotrigine 100 mg tablet 100 mg PO 0800,1500 05/16/21
lamotrigine 100 mg tablet 100 mg PO 2000 05/16/21
plecanatide 3 mg tablet (Trulance) 3 mg PO DAILY 05/16/21
sertraline 50 mg tablet 50 mg PO DAILY 05/16/21
lactulose 20 gram oral packet (Kristalose) 20 g PO BID PRN constipation #30 ea 08/17/22
codeine 10 mg-guaifenesin 100 mg/5 mL oral liquid 5 ml PO ONCE #100 mL 09/16/22
gabapentin 300 mg capsule 300 mg PO TID #30 caps 03/27/23
[2024-10-26 15:22] LABS: Erythrocyte Sed Rate 16 mm/hour (0-20)
[2024-10-26] MEDS: ATIVAN 1 MG IV (15:45)
== END 2024-10-26 17:36 | disposition home or self-care (01) ==
LOC: EMR 08:45
PROVIDERS: Emergency Medicine; EMERGENCY PHYSICIAN Emergency Medicine; FAMILY PHYSICIAN Family Medicine; OTHER PHYSICIAN Psychiatry & Neurology Neurology
DX: H53.122 Transient visual loss, left eye (principal); E78.5 Hyperlipidemia, unspecified; F41.1 Generalized anxiety disorder; J45.909 Unspecified asthma, uncomplicated; G89.29 Other chronic pain; M54.2 Cervicalgia; Z79.899 Other long term (current) drug therapy
CPT/HCPCS: 99285; 96374; 96375; 96361; 70496; 70498; 70551; 80053; 85025; 85652; 86140; 93005; Q9967

== ENCOUNTER → 2024-11-07 15:34 | Outpatient (REF) | payer OTHER, SELFPAY | LOC: HWRCS 15:34 | PROVIDERS: ATTENDING PHYSICIAN Family Medicine | DX: G45.9 Transient cerebral ischemic attack, unspecified (principal); G45.3 Amaurosis fugax | CPT/HCPCS: 93306 ==

== ENCOUNTER → 2024-12-25 07:08 | Outpatient (REF) | payer OTHER, SELFPAY | LOC: RCS 07:08 | PROVIDERS: ATTENDING PHYSICIAN Internal Medicine Interventional Cardiology; FAMILY PHYSICIAN Family Medicine | DX: G45.9 Transient cerebral ischemic attack, unspecified (principal); E78.00 Pure hypercholesterolemia, unspecified; R73.01 Impaired fasting glucose | CPT/HCPCS: 93306 ==

== ENCOUNTER 2025-01-18 06:29 | Day surgery (SDC) | payer OTHER, SELFPAY | END 2025-01-18 08:30 | disposition home or self-care (01) | LOC: GI 06:29 | PROVIDERS: ATTENDING PHYSICIAN Internal Medicine | DX: Z12.11 Encounter for screening for malignant neoplasm of colon (principal); K64.9 Unspecified hemorrhoids; N81.6 Rectocele; Z86.0101 Personal history of adenomatous and serrated colon polyps | CPT/HCPCS: G0105 ==

== ENCOUNTER 2025-01-25 06:27 | Day surgery (SDC) | payer OTHER, SELFPAY ==
[2025-01-25 08:13] LABS: Glucose - Point of Care 101 mg/dl (70-99)
== END 2025-01-25 10:06 | disposition home or self-care (01) ==
LOC: GI 06:27
PROVIDERS: ATTENDING PHYSICIAN Internal Medicine
DX: R13.12 Dysphagia, oropharyngeal phase (principal); K44.9 Diaphragmatic hernia without obstruction or gangrene; K31.7 Polyp of stomach and duodenum; R13.14 Dysphagia, pharyngoesophageal phase
CPT/HCPCS: 43249; 43239; 88305; 82962

== ENCOUNTER 2025-03-03 10:09 | Emergency (ER) | payer OTHER, SELFPAY ==
[2025-03-03 10:22] VITALS: BP 146/92
--- NOTE | 2025-03-03 11:53 | ED.MUSCINJ ---
HPI-Injury
General
Chief Complaint: Musculo-Skeletal Complaint
Time Seen by Provider: 03/03/25 11:29
History of Present Illness-Injury
Initial Injury comments:
Patient is a 54-year-old female with past medical history of chronic back pain, migraine disorder, spinal stenosis, asthma, IBS anxiety, bipolar disorder, depression, and history of osteoarthritis along the right knee, here today for evaluation of
right knee pain x 1 day. Patient reports she was walking with plants in her hands when she felt sudden onset of pain followed by a pop sensation in her right knee followed by inability to bear weight. She has since had associated pain along the
right knee. No prior knee surgeries. She currently follows with orthopedics. No other acute complaints. Pain is primarily noted laterally.
Past History
Past History
ED Past Medical History: Asthma, Psychiatric (Anxiety, depression, bipolar) and Other (IBS, chronic neck pain, migraines, Spinal stenosis. PNA, UTI, )
ED Past Surgical History: Appendectomy, Gynecological (Total abd hysterectomy, Leep), Orthopedic (T10-12 fusion, microdiscectomy L3/L4, right and left wrist surgery, Right hand surgery, Cervical fusion), Urological (Bladder and ureteral stent) and
Other (Left Lumpectomy)
Social History
Tobacco: Non-smoker
Alcohol: None
Drug: None
Personal:
Living: with family
Employment: Employed (Self-employed)
Family History
Family History: Other (Noncontributory)
Review of Systems
Review of Systems
All Other Systems: ROS reviewed and negative except as documented in HPI and ROS
Phy Exam
Physical Exam
Physical Exam:
GENERAL: Alert , in no apparent distress
EYE: pupils equal and reactive
NECK: Supple
NEUROLOGICAL: Alert and oriented, no focal neuro deficits
SKIN: Warm and dry, skin intact.
MUSCULOSKELETAL: No edema, well perfused. No tenderness to palpation along the right knee and the patient has no effusion or deformities. Patient neurovascularly intact. There is subjective pain with turning of the knee/extremity outward/laterally
but there is no joint laxity.
PSYCH: Normal and appropriate interaction.
Injury Course
Orders/Labs/Results
Orders:
Orders
03/03/25 10:26
Knee, Right 4 or More Views [CR Knee- Right 4 Or More View*] Urgent
Comment:
Reason For Exam: pain injury
03/03/25 12:27
Ketorolac [Toradol] 15 mg IM NOW STA
03/03/25 13:14
Crutches-Treatment ONCE
Knee Immobilizer Right-Treatme ONCE
Walker [Treatment- Walker] ONCE
MDM/Problems Addressed
Differential Diagnosis Includes:
Patient is a 54-year-old female with past medical history of chronic back pain, migraine disorder, spinal stenosis, asthma, IBS anxiety, bipolar disorder, depression, and history of osteoarthritis along the right knee, here today for evaluation of
right knee pain. Overall, patient appears well. On examination there is no tenderness to palpation and the patient has no effusion or deformities. Patient neurovascularly intact. There is subjective pain with turning of the knee/extremity
outward/laterally but there is no joint laxity. Given symptoms/findings, will begin with x-rays.
03/03/2025 14:21: XRs reveal mild tricompartmental osteoarthritis. There is also findings suggesting a small suprapatellar joint effusion. Patient left prior to official read of x-rays however plan at the time of discharge was providing patient a
knee immobilizer and crutches and recommending supportive measures, RICE, and close follow-up with orthopedics. I attempted to contact patient with official x-ray results post discharge without success. Voicemail left.
03/03/2025 14:28: Patient called back. Discussed x-ray results. Plan per above. All questions answered.
*Critical Care Note
Total Time (30-74mins, 75-104mins- exclusive of procedures): Not Applicable
ED Attending Note
-
Portions of this chart may have been created with voice recognition software.� Occasional wrong word or��sound alike� substitutions may have occurred due to the inherent limitations of voice recognition software.
Discharge Plan
Departure
Patient Disposition: Home (Routine Discharge)
Date of Disposition: 03/03/25
Time of Disposition: 13:19
Patient with high blood pressure during this ER visit?: Yes
Condition: Fair
Discharge Problem:
Acute pain of right knee
Instructions: Knee Pain (DC)
Prescriptions:
New
ibuprofen 600 mg tablet
600 mg PO Q6H PRN (Reason: Pain) 5 Days Qty: 20 0RF
Rx Instructions:
Take with food
No Action
ondansetron HCl 4 MG tablet
4 mg PO Q8HPRN PRN (Reason: n/v)
lorazepam 1 MG tablet
1 mg PO Q4HPRN PRN (Reason: anxiety)
polyethylene glycol 3350 17 GRAMS powder in packet
17 gm PO DAILY PRN (Reason: constipation)
clonazepam 0.25 MG tablet
0.25 mg PO AC
clonazepam 1 MG tablet
1 mg PO HS
sertraline 50 MG tablet
50 mg PO DAILY
lamotrigine 100 MG tablet
100 mg PO 2000
lamotrigine 100 MG tablet
100 mg PO 0800,1500
cholecalciferol (vitamin D3) 1,000 UNITS tablet
1,000 units PO DAILY
plecanatide [Trulance] 3 MG tablet
3 mg PO DAILY
fluticasone furoate [Arnuity Ellipta] 50 MCG blister with device
50 mcg inhalation R DAILY
Kristalose 20 gram packet
20 g PO BID PRN (Reason: constipation) Qty: 30 0RF
codeine-guaifenesin 10-100 mg/5 mL liquid
5 ml PO ONCE Qty: 100 0RF
gabapentin 300 mg capsule
300 mg PO TID Qty: 30 0RF
Referrals:
Park,Peck, MD [Active, Orthopedics] - Follow up in 1 week
Yas East MD [Family Provider, Family Practice]
Activity Restrictions/Additional Instructions:
Your x-ray is normal on primarily read.
Do not bear weight on the affected extremity. Remain in the knee immobilizer. Use the crutches for ambulation.
Take the prescribed ibuprofen as directed as needed with food.
Follow-up with orthopedic specialists within the next 7 days for close reevaluation.
Return for any new, worsening, or concerning symptoms
Interventions
Interventions:
*Risk Screen - Suicide Last Done: 03/03/25 10:22
*General Assessment Last Done: 03/03/25 13:25
*Neglect/Abuse Screening Last Done: 03/03/25 10:22
*ED- Fall Risk Assessment Last Done: 03/03/25 13:25
*ED COVID-19 Vaccine History Last Done: 03/03/25 13:25
*Nursing Disposition Last Done: 03/03/25 13:25
ED-Musculoskeletal Assessment Last Done: 03/03/25 13:03
Discharge Date and Time
Print Language: PAKISTANI
[2025-03-03] MEDS: TORADOL 15 MG IM (12:40)
== END 2025-03-03 13:25 | disposition home or self-care (01) ==
LOC: EMR 10:09
PROVIDERS: EMERGENCY PHYSICIAN Emergency Medicine; FAMILY PHYSICIAN Family Medicine
DX: M25.561 Pain in right knee (principal); M25.461 Effusion, right knee; R03.0 Elevated blood-pressure reading, without diagnosis of hypertension; M54.9 Dorsalgia, unspecified; G43.909 Migraine, unspecified, not intractable, without status migrainosus; M17.11 Unilateral primary osteoarthritis, right knee; M48.00 Spinal stenosis, site unspecified; J45.909 Unspecified asthma, uncomplicated; K58.9 Irritable bowel syndrome, unspecified; F31.9 Bipolar disorder, unspecified; G89.29 Other chronic pain; F41.9 Anxiety disorder, unspecified; F32.A Depression, unspecified; Z87.440 Personal history of urinary (tract) infections; M43.22 Fusion of spine, cervical region; Z88.5 Allergy status to narcotic agent
CPT/HCPCS: 99284; 29505; 96372; 73564

== ENCOUNTER 2025-03-26 13:07 | Outpatient (RCR) | payer OTHER, SELFPAY | END 2025-03-26 23:59 | disposition home or self-care (01) | LOC: RPT 13:07 | PROVIDERS: ATTENDING PHYSICIAN Physician Assistant; FAMILY PHYSICIAN Family Medicine | DX: M25.561 Pain in right knee (principal); Z98.1 Arthrodesis status; M54.16 Radiculopathy, lumbar region | CPT/HCPCS: 97110; 97140; 97162 ==

== ENCOUNTER 2025-04-06 09:22 | Outpatient (RCR) | payer OTHER, SELFPAY | END 2025-04-06 23:59 | disposition home or self-care (01) | LOC: RPT 09:22 | PROVIDERS: ATTENDING PHYSICIAN Physician Assistant; FAMILY PHYSICIAN Family Medicine | DX: M25.561 Pain in right knee (principal); M54.16 Radiculopathy, lumbar region; Z73.6 Limitation of activities due to disability; R26.89 Other abnormalities of gait and mobility; Z98.1 Arthrodesis status | CPT/HCPCS: 97010; 97110; 97140 ==

== ENCOUNTER → 2025-05-14 09:19 | Outpatient (REF) | payer OTHER, SELFPAY ==
[2025-05-14 09:58] LABS: Hematocrit 40.6 % (37.0-47.0); Hemoglobin 12.9 g/dL (12.0-16.0); Mean Corp Hgb Conc. 31.8 g/dL (33.0-37.0); Mean Corpuscular Volume 86.6 fL (81.0-99.0); Nucleated Red Blood Cells % 0 %; Platelet Count 337 10^3/uL (130-400); Red Cell Dist. Width 14.4 % (11.5-14.5)
[2025-05-14 10:34] LABS: Blood Urea Nitrogen 9 mg/dl (7-17); Calcium 9.7 mg/dl (8.4-10.2); Carbon Dioxide 29 mmol/L (22-30); Chloride 105 mmol/L (98-107); Glucose 94 mg/dl (70-99); Potassium 4.6 mmol/L (3.5-5.1); Sodium 142 mmol/L (135-145); eGFR > 60.00
== END ==
LOC: REG 09:19
PROVIDERS: ATTENDING PHYSICIAN Specialist
DX: Z01.818 Encounter for other preprocedural examination (principal)
CPT/HCPCS: 36415; 80048; 85025; 93005

== ENCOUNTER 2025-07-27 06:52 | Outpatient (RCR) | payer OTHER, SELFPAY | END 2025-07-27 23:59 | disposition home or self-care (01) | LOC: RPT 06:52 | PROVIDERS: ATTENDING PHYSICIAN Orthopaedic Surgery Sports Medicine; FAMILY PHYSICIAN Family Medicine | DX: M17.11 Unilateral primary osteoarthritis, right knee (principal); Z73.6 Limitation of activities due to disability; R26.2 Difficulty in walking, not elsewhere classified; R26.89 Other abnormalities of gait and mobility | CPT/HCPCS: 97010; 97110; 97112; 97116; 97162; 97530 ==

== ENCOUNTER 2025-08-08 07:31 | Outpatient (RCR) | payer OTHER, SELFPAY | END 2025-08-10 09:39 | disposition home or self-care (01) | LOC: RPT 07:31 | PROVIDERS: ATTENDING PHYSICIAN Orthopaedic Surgery Sports Medicine; FAMILY PHYSICIAN Family Medicine | DX: M17.11 Unilateral primary osteoarthritis, right knee (principal); Z73.6 Limitation of activities due to disability; R26.2 Difficulty in walking, not elsewhere classified; R26.89 Other abnormalities of gait and mobility | CPT/HCPCS: 97110; 97112 ==

== ENCOUNTER 2025-09-26 07:23 | Outpatient (RCR) | payer OTHER, SELFPAY | END 2025-09-26 23:59 | disposition home or self-care (01) | LOC: RPT 07:23 | PROVIDERS: ATTENDING PHYSICIAN Physician Assistant Medical; FAMILY PHYSICIAN Family Medicine | DX: Z47.1 Aftercare following joint replacement surgery (principal); M17.11 Unilateral primary osteoarthritis, right knee; Z73.6 Limitation of activities due to disability; R26.2 Difficulty in walking, not elsewhere classified; R26.89 Other abnormalities of gait and mobility; M62.81 Muscle weakness (generalized); Z96.651 Presence of right artificial knee joint | CPT/HCPCS: 97110; 97162 ==